=== PATIENT | female | born 1985 | race American Indian/Alaskan Native ===

== ENCOUNTER 2017-05-13 17:48 | Emergency (ER) | payer OTHER, BC ==
[2017-05-13 18:11] VITALS: BP 100/45; PULSE 78; RESP 16; TEMP 98.6; O2SAT 100; BMI 30.2
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
== END 2017-05-13 19:25 | disposition home or self-care (01) ==
LOC: ED 17:48 → MERGE 17:48 → ED 19:25
DX: S39.012A Strain of muscle, fascia and tendon of lower back, initial encounter (principal); V49.9XXA Car occupant (driver) (passenger) injured in unspecified traffic accident, initial encounter
CPT/HCPCS: 72110; 96372; 99282; J1885

== ENCOUNTER 2017-06-10 14:50 | Emergency (ER) | payer BC, OTHER ==
[2017-06-10 14:55] VITALS: BMI 29.6
[2017-06-10 14:58] VITALS: BP 108/69; PULSE 70; RESP 17; TEMP 98.1; O2SAT 100
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
== END 2017-06-10 16:50 | disposition home or self-care (01) ==
LOC: ED 14:50
DX: M54.5 Low back pain (principal)
CPT/HCPCS: 96372; 99283; J1885

== ENCOUNTER 2017-11-06 14:00 | Emergency (ER) | payer BC ==
[2017-11-06 14:20] VITALS: BMI 30.2
[2017-11-06 14:25] VITALS: BP 101/65; PULSE 70; RESP 16; TEMP 99.3; O2SAT 99
--- NOTE | 2017-11-06 14:42 | ED PDOC ---
Arrival/HPI - General Chief Complaint: Flu-like Symptoms Time Seen by Provider: 11/06/17 14:31 Historian: Patient - History of Present Illness Narrative History of Present Illness (Text): 11/06/17 14:39 32 y/o female, no pmh, nkda, c/o sinus pressure and coughing x 5 days. Pt. stated that she was seen for URI symptoms about 5 days ago with the bodyache resolved, now she has sinus congestion and pressure, no change in vision, no coughing, no night sweat, no numbness or tingling, no rash, no other medical or psychological complaints. Past Medical History - Provider Review Nursing Documentation Reviewed: Yes - Infectious Disease Hx of Infectious Diseases: None - Reproductive Menopause: No - Psychiatric Hx Substance Use: No - Surgical History Hx Section: Yes (x2) - Anesthesia Hx Anesthesia: Yes Hx Anesthesia Reactions: No Hx Malignant Hyperthermia: No - Suicidal Assessment Feels Threatened In Home Enviroment: No Family/Social History - Physician Review Nursing Documentation Reviewed: Yes Family/Social History: Unknown Family HX Smoking Status: Never Smoked Hx Alcohol Use: Yes Hx Substance Use: No Allergies/Home Meds Allergies/Adverse Reactions: Allergies No Known Allergies Allergy (Verified 06/10/17 14:55) Review of Systems - Review of Systems Constitutional: absent: Fatigue, Fevers Eyes: absent: Vision Changes ENT: Sinus Congestion. absent: Hearing Changes Respiratory: absent: SOB, Cough, Sputum, Wheezing Cardiovascular: absent: Chest Pain Gastrointestinal: absent: Abdominal Pain, Nausea, Vomiting Musculoskeletal: absent: Arthralgias, Back Pain Skin: absent: Rash Neurological: absent: Headache, Dizziness Psychiatric: absent: Anxiety, Depression, Suicidal Ideation Physical Exam Vital Signs Reviewed: Yes Vital Signs Temp Pulse Resp BP Pulse Ox 11/06/17 14:20 99.3 F 70 16 101/65 99 Temperature: Afebrile Blood Pressure: Normal Pulse: Regular Respiratory Rate: Normal Appearance: Positive for: Well-Appearing, Non-Toxic, Comfortable Pain Distress: None Mental Status: Positive for: Alert and Oriented X 3 - Systems Exam Head: Present: Atraumatic, Normocephalic, Other (+ttp on the lt. frontal sinus region, no facial or periorbital swelling. ) Pupils: Present: PERRL Extroacular Muscles: Present: EOMI Conjunctiva: Present: Normal Ears: Present: NORMAL TM, Normal Canal. No: Erythema Mouth: Present: Moist Mucous Membranes Pharnyx: No: ERYTHEMA, EXUDATE, TONSILS ENLARGED, Uvular Deviation, Muffled/ Hoarse Voice Nose (External): Present: Atraumatic. No: Abrasion, Contusion, Laceration Nose (Internal): Present: Normal Inspection, No Active Bleeding. No: Rhinorrhea , Septal Hematoma, Epistaxis Neck: Present: Normal Range of Motion, Trachea Midline. No: Meningeal Signs, MIDLINE TENDERNESS, Lymphadenopathy Respiratory/Chest: Present: Clear to Auscultation, Good Air Exchange. No: Respiratory Distress, Accessory Muscle Use, Wheezes, Decreased Breath Sounds, Rales, Retracting, Rhonchi Cardiovascular: Present: Regular Rate and Rhythm, Normal S1, S2. No: Murmurs Abdomen: Present: Normal Bowel Sounds. No: Tenderness, Distention, Peritoneal Signs Back: Present: Normal Inspection Upper Extremity: Present: Normal Inspection. No: Cyanosis, Edema Lower Extremity: Present: Normal Inspection. No: Edema Neurological: Present: GCS=15, Speech Normal, Motor Func Grossly Intact, Gait Normal, Memory Normal Skin: Present: Warm, Dry, Normal Color. No: Rashes Psychiatric: Present: Alert, Oriented x 3, Normal Insight, Normal Concentration Medical Decision Making ED Course and Treatment: 11/06/17 14:43 -Discharge home with augmentin, stay hydrated, bed rest, follow up with your own pmd and ENT within 2 days, return to the ER for any new or worsening signs or symptoms. - PA / RN PRACTITIONER / Resident Statement MD/DO has reviewed & agrees with the documentation as recorded. Disposition/Present on Arrival - Present on Arrival Any Indicators Present on Arrival: No History of DVT/PE: No History of Uncontrolled Diabetes: No Urinary Catheter: No History of Decub. Ulcer: No History Surgical Site Infection Following: None - Disposition Have Diagnosis and Disposition been Completed?: Yes Diagnosis: Sinusitis Disposition: HOME/ ROUTINE Disposition Time: 14:44 Patient Plan: Discharge Condition: GOOD Discharge Instructions (ExitCare): Sinusitis (ED) Print Language: SINHALA Additional Instructions: -Discharge home with augmentin, stay hydrated, bed rest, follow up with your own pmd and ENT within 2 days, return to the ER for any new or worsening signs or symptoms. Prescriptions: Amoxicillin/Clavulanate [Augmentin 875 MG-125 MG] 1 tab PO BID #14 tab Referrals: Saad Sifuentes Jr., MD [Primary Care Provider] - Follow up with primary Dinesh Mendes DO [Staff Provider] - Follow up with primary Forms: [employer] (Indian), WORK NOTE
== END 2017-11-06 14:53 | disposition home or self-care (01) ==
LOC: ED 14:00
DX: J32.9 Chronic sinusitis, unspecified (principal)

== ENCOUNTER 2018-04-12 22:17 | Emergency (ER) | payer BC ==
[2018-04-12 22:42] VITALS: O2SAT 99
[2018-04-12 22:50] VITALS: BMI 29.2
[2018-04-12 23:57] LABS: URINE BILIRUBIN NEGATIVE (NEGATIVE); URINE BLOOD SMALL (NEGATIVE); URINE GLUCOSE (UA) NEGATIVE (NEGATIVE); URINE LEUKOCYTE ESTERASE NEGATIVE Leu/uL (NEGATIVE); URINE PROTEIN TRACE mg/dL (<30 mg/dL); URINE UROBILINOGEN 0.2 E.U./dL (<1 E.U./dL)
[2018-04-13 00:07] LABS: URINE APPEARANCE CLEAR (CLEAR); URINE COLOR YELLOW (YELLOW)
[2018-04-13 00:15] LABS: URINE BACTERIA MOD (NEG)
--- NOTE | 2018-04-13 00:39 | ED PDOC ---
Arrival/HPI - General Chief Complaint: Flu-like Symptoms Time Seen by Provider: 04/12/18 23:02 Historian: Patient - History of Present Illness Narrative History of Present Illness (Text): 04/13/18 00:40 32 year old female, with no significant past medical history, presents to the Emergency department complaining of nausea that began today morning (11:30AM). Patient reports she first saw an insect bite to her left thigh yesterday. She states she first began developing nausea and then later on developed back pain, joint pain, and fever. Patient reports she went to sleep for 4 hours and still felt the same. She is worried she was bitten by a spider which caused her to get sick and decided to come in for evaluation. Patient denies any chills, chest pain, shortness of breath, abdominal pain, vomiting, diarrhea, neck pain, urinary symptoms, headache, dizziness, or any other complaint. Symptom Onset: Gradual Symptom Course: Unchanged Activities at Onset: Light Context: Home Past Medical History - Provider Review Nursing Documentation Reviewed: Yes - Infectious Disease Hx of Infectious Diseases: None - Psychiatric Hx Substance Use: No - Surgical History Hx Section: Yes (x2) - Anesthesia Hx Anesthesia: Yes Hx Anesthesia Reactions: No Hx Malignant Hyperthermia: No - Suicidal Assessment Feels Threatened In Home Enviroment: No Family/Social History - Physician Review Nursing Documentation Reviewed: Yes Family/Social History: No Known Family HX Smoking Status: Never Smoked Hx Alcohol Use: Yes Hx Substance Use: No Allergies/Home Meds Allergies/Adverse Reactions: Allergies No Known Allergies Allergy (Verified 04/12/18 22:46) Review of Systems - Physician Review All systems were reviewed & negative as marked: Yes - Review of Systems Constitutional: Fevers. absent: Other (Chills) Respiratory: absent: SOB Cardiovascular: absent: Chest Pain Gastrointestinal: Nausea. absent: Abdominal Pain, Diarrhea, Vomiting Genitourinary Female: absent: Dysuria, Frequency Musculoskeletal: Arthralgias, Back Pain. absent: Neck Pain Neurological: absent: Headache, Dizziness Physical Exam Vital Signs Reviewed: Yes Vital Signs Temp Pulse Resp BP Pulse Ox 04/13/18 03:10 85 16 123/76 99 04/13/18 01:09 88 16 129/70 99 04/12/18 22:42 99.3 F 93 H 18 127/62 99 Temperature: Afebrile Blood Pressure: Normal Pulse: Regular Respiratory Rate: Normal Appearance: Positive for: Well-Appearing, Non-Toxic, Comfortable Pain Distress: None Mental Status: Positive for: Alert and Oriented X 3 - Systems Exam Head: Present: Atraumatic, Normocephalic Pupils: Present: PERRL Extroacular Muscles: Present: EOMI Conjunctiva: Present: Normal Mouth: Present: Moist Mucous Membranes Neck: Present: Normal Range of Motion Respiratory/Chest: Present: Clear to Auscultation, Good Air Exchange. No: Respiratory Distress, Accessory Muscle Use Cardiovascular: Present: Regular Rate and Rhythm, Normal S1, S2. No: Murmurs Abdomen: No: Tenderness, Distention, Peritoneal Signs Back: Present: Normal Inspection Upper Extremity: Present: Normal Inspection. No: Cyanosis, Edema Lower Extremity: Present: Other ((+)Tinny red donna on the thigh (-) Ulcer ). No : Edema, Tenderness, Swelling Neurological: Present: GCS=15, CN II-XII Intact, Speech Normal Skin: Present: Warm, Dry, Normal Color. No: Rashes Psychiatric: Present: Alert, Oriented x 3, Normal Insight, Normal Concentration Medical Decision Making ED Course and Treatment: 04/13/18 00:37 Impression: 32 year old female presents complaining of developing nausea today morning and then later developed back pain, arthralgia, and fever. Patient reports insect bite to the left thigh yesterday. Plan: -- Labs -- Chest X-ray -- Lyme Disease, EIA, W/RFL WB -- Benadryl, Morphine, IV Fluids, Toradol, Zofran Inj -- Influenza A B -- Urine Preg. test -- HCG, Qualit. Urine. -- Urinalysis w/ micro -- Reassess and disposition Prior Visits: Notes and results from previous visits were reviewed. Patient was last seen in the emergency department on 11/06/17 presents complaining of sinus pressure and coughing for the past 5 days. Patient was discharged. Progress Notes: 04/13/18 02:09 CXR Impression: As read by me, no acute disease. 04/13/18 03:10 On re-evaluation, patient feels better and is in no acute distress. I have discussed the results and plan with the patient, who expresses understanding. Patient in agreement with plan to be discharged home. Patient is stable for discharge. Patient was instructed to follow up with physician or return if symptoms worsen or new concerning symptoms arise. - Lab Interpretations Lab Results: 04/13/18 01:37 04/13/18 01:37 Lab Results 04/13/18 01:37: Sodium 137, Potassium 3.9, Chloride 104, Carbon Dioxide 24, Anion Gap 13, BUN 7, Creatinine 0.5 L, Est GFR ( Amer) > 60, Est GFR (Non -Af Amer) > 60, Random Glucose 87, Calcium 8.6, Total Bilirubin 0.5, AST 22, ALT 26, Alkaline Phosphatase 56, Total Protein 6.9, Albumin 3.8, Globulin 3.1, Albumin/Globulin Ratio 1.2 04/13/18 01:37: PT 11.6, INR 1.02 04/13/18 01:37: WBC 7.4, RBC 4.60, Hgb 12.1, Hct 37.2, MCV 80.9, MCH 26.3, MCHC 32.5, RDW 14.5, Plt Count 210, MPV 10.5, Gran % 72.6 H, Lymph % (Auto) 22.2, [place] % (Auto) 4.4, Eos % (Auto) 0.7 L, Baso % (Auto) 0.1, Gran # 5.40, Lymph # ( Auto) 1.7, [place] # (Auto) 0.3, Eos # (Auto) 0.1, Baso # (Auto) 0.01 04/13/18 01:02: Influenza Typ A,B (EIA) Negative for flu a/b 04/12/18 23:55: Urine HCG, Qual Negative 04/12/18 23:35: Urine Color Yellow, Urine Appearance Clear, Urine pH 7.0, Ur Specific [place] 1.010, Urine Protein Trace H, Urine Glucose (UA) Negative, Urine Ketones Negative, Urine Blood Small H, Urine Nitrate Negative, Urine Bilirubin Negative, Urine Urobilinogen 0.2, Ur Leukocyte Esterase Negative, Urine RBC 1 - 3, Urine WBC 1 - 3, Ur Epithelial Cells 4 - 5, Urine Bacteria Mod I have reviewed the lab results: Yes - RAD Interpretation Radiology Orders: 04/13/18 00:56 CXR [CHEST TWO VIEWS (PA/LAT)] [RAD] Stat - Medication Orders Current Medication Orders: Discontinued Medications Diphenhydramine HCl (Benadryl) 25 mg IVP STAT STA Stop: 04/13/18 00:55 Last Admin: 04/13/18 01:36 Dose: 25 mg IVP Administration Document 04/13/18 01:36 MS (Rec: 04/13/18 01:36 [place] [facility] [id number] Charges for Administration # of IVP Administrations 1 Sodium Chloride (Sodium Chloride 0.9%) 2,000 mls @ 999 mls/hr IV .Q2H1M STA Stop: 04/13/18 02:54 Last Admin: 04/13/18 01:36 Dose: 999 mls/hr eMAR Start Stop Document 04/13/18 01:36 MS (Rec: 04/13/18 01:36 [place] [facility] [id number] Intravenous Solution Start Date 04/13/18 Start Time 01:36 End Date 04/13/18 End time 02:36 Total Infusion Time 60 Ibuprofen (Motrin Tab) 800 mg PO STAT STA Stop: 04/13/18 02:58 Ketorolac Tromethamine (Toradol) 30 mg IVP STAT STA Stop: 04/13/18 00:55 Last Admin: 04/13/18 01:35 Dose: 30 mg MAR Pain Assessment Document 04/13/18 01:35 MS (Rec: 04/13/18 01:36 [place] [facility] [id number] Pain Reassessment Is this a pain reassessment? No Sleep Is patient sleeping during reassessment? No Presence of Pain Presence of Pain Yes Pain Scale Used Pain Scale Used Numeric Location Upper or Lower Lower Pain Location Body Site Back Description Description Constant Intensity of Pain at present 8 Pain Behavior Moaning IVP Administration Document 04/13/18 01:35 MS (Rec: 04/13/18 01:36 [place] [facility] [id number] Charges for Administration # of IVP Administrations 1 Morphine Sulfate (Morphine) 4 mg IVP STAT STA Stop: 04/13/18 00:55 Last Admin: 04/13/18 01:35 Dose: 4 mg MAR Pain Assessment Document 04/13/18 01:35 MS (Rec: 04/13/18 01:35 [facility] [id number][place] Pain Reassessment Is this a pain reassessment? No Sleep Is patient sleeping during reassessment? No Presence of Pain Presence of Pain Yes Pain Scale Used Pain Scale Used Numeric Location Upper or Lower Lower Pain Location Body Site Back Description Description Constant Intensity of Pain at present 8 Pain Behavior Guarding Grasping Site IVP Administration Document 04/13/18 01:35 MS (Rec: 04/13/18 01:35 [place] [facility] [id number] Charges for Administration # of IVP Administrations 1 Ondansetron HCl (Zofran Inj) 4 mg IVP STAT STA Stop: 04/13/18 00:55 Last Admin: 04/13/18 01:36 Dose: 4 mg IVP Administration Document 04/13/18 01:36 MS (Rec: 04/13/18 01:36 [facility] [id number][place] Charges for Administration # of IVP Administrations 1 Ondansetron HCl (Zofran Odt) 8 mg PO STAT STA Stop: 04/13/18 02:58 - Scribe Statement The provider has reviewed the documentation as recorded by the Bebeto Wilson Provider Scribe Attestation: All medical record entries made by the Corinneibbernadette were at my direction and personally dictated by me. I have reviewed the chart and agree that the record accurately reflects my personal performance of the history, physical exam, medical decision making, and the department course for this patient. I have also personally directed, reviewed, and agree with the discharge instructions and disposition. Disposition/Present on Arrival - Present on Arrival Any Indicators Present on Arrival: No History of DVT/PE: No History of Uncontrolled Diabetes: No Urinary Catheter: No History of Decub. Ulcer: No History Surgical Site Infection Following: None - Disposition Have Diagnosis and Disposition been Completed?: Yes Diagnosis: Viral syndrome Disposition: HOME/ ROUTINE Disposition Time: 02:56 Patient Plan: Discharge Patient Problems: Current Active Problems Problem Status Onset Viral syndrome Acute Condition: GOOD Discharge Instructions (ExitCare): Viral Gastroenteritis Additional Instructions: [place] - Sorry that you do not feel well. All of your tests were unremarkable. Motrin if for pain and or fever. Zofran is for nausea and or vomiting. Return to us if problems. See your doctor later this week. Take a day or two off work. Khoa- Dr. Javi Puentes Prescriptions: Ibuprofen [Motrin Tab] 800 mg PO TID #30 tab Ondansetron [Zofran Odt] 8 mg PO TID #30 tab.rapdis Forms: [facility] (Nepali), WORK NOTE
[2018-04-13] MEDS ORDERED: Morphine 4 mg/ml ISec IVP STA (00:54)
[2018-04-13] MEDS ORDERED: Sodium Chloride 0.9% 2,000 ML IV STA (00:54)
[2018-04-13] MEDS ORDERED: DiphenhydrAMINE 50 mg/ml Inj IVP STA (00:54)
[2018-04-13 01:59] LABS: ALB/GLOB RATIO 1.2 (1.1-1.8); ALBUMIN 3.8 g/dL (3.0-4.8); ALT/SGPT 26 U/L (7-56); AST/SGOT 22 U/L (14-36); BLOOD UREA NITROGEN 7 mg/dL (7-21); CALCIUM 8.6 mg/dL (8.4-10.5); GFR AFRICAN-AMERICAN > 60; GFR NON-AFRICAN AMERICAN > 60
[2018-04-13 02:06] LABS: BASO # 0.01 K/mm3 (0.0-2.0); BASO % 0.1 % (0.0-3.0); EOS # 0.1 (0.0-0.7); EOS % 0.7 % (1.5-5.0); GRAN # 5.4 (1.4-6.5); GRAN % 72.6 % (50.0-68.0); HEMOGLOBIN 12.1 g/dL (12.0-16.0); LYMPH # 1.7 (1.2-3.4); LYMPH % 22.2 % (22.0-35.0); MEAN CELL VOLUME 80.9 fl (80.0-105.0); MEAN CORPUSCULAR HEMOGLOBIN 26.3 pg (25.0-35.0); MEAN CORPUSCULAR HGB CONC 32.5 g/dl (31.0-37.0); MEAN PLATELET VOLUME 10.5 fl (7.0-11.0); MONO # 0.3 (0.1-0.6); MONO % 4.4 % (1.0-6.0); RBC 4.6 10^6/uL (3.5-6.1); RED CELL DISTRIBUTION WIDTH 14.5 % (11.5-14.5); WHITE BLOOD COUNT 7.4 10^3/ul (4.5-11.0)
[2018-04-13 02:25] LABS: INR 1.02 (0.93-1.08); PROTHROMBIN TIME 11.6 SECONDS (9.4-12.5)
[2018-04-13 03:10] VITALS: BP 123/76; PULSE 85; RESP 16
[2018-04-13 03:20] VITALS: TEMP 98.6
--- NOTE | 2018-04-13 10:01 | RAD ---
HISTORY: Fever COMPARISON: No prior. TECHNIQUE: Chest PA and lateral FINDINGS: LUNGS: No active pulmonary disease. PLEURA: No significant pleural effusion identified. No pneumothorax apparent. CARDIOVASCULAR: Normal. OSSEOUS STRUCTURES: No significant abnormalities. VISUALIZED UPPER ABDOMEN: Normal. OTHER FINDINGS: None. IMPRESSION: No active disease.
== END 2018-04-13 03:18 | disposition home or self-care (01) ==
LOC: ED 22:17
DX: B34.9 Viral infection, unspecified (principal)
CPT/HCPCS: 71046; 80053; 81001; 81025; 84703; 85025; 85610; 86618; 87804; 96361; 96374; 96375; 99284; J1200; J1885; J2270; J2405; J7030